=== PATIENT | male | born 1995 | race Caucasian/White ===

== ENCOUNTER 2020-03-11 21:09 | Emergency (ER) | payer SELFPAY ==
[~2020-03-11] VITALS: Ht 182.9 cm; Wt 91.2 kg
[2020-03-11 21:15] VITALS: BP 138/72
--- NOTE | 2020-03-11 21:19 | NUR ---
To ED bed 03
--- NOTE | 2020-03-11 21:38 | NUR ---
24 Y/O MALE C/O CHEST PAIN X8DAYS. PT STATES HE RECNTLY HAD AN UPPER RESPIRATORY INFECTION. PT ALSO STATES HE IS FEELING ANXIOUS AND NOT SURE IF THE CHEST PAIN IS DUE TO ANIXETY OR NOT. PT STATES 8/10 INTERMITTENT CHEST PRESSURE, NON RADIATIONING. TOOK 1 ZOFRAN AND VITAMIN C IN AM. LUNG SOUNDS CLEAR. ACTIVE BOWEL SOUNDS. SKIN WARM AND DRY. PMH: ANXIETY NKA
--- NOTE | 2020-03-11 21:40 | NUR ---
Dr. Navarro at bedside for MSE.
[2020-03-11] MEDS ORDERED: NACL 0.9% 1,000 ML IV ONE (21:50)
--- NOTE | 2020-03-11 21:53 | NUR ---
LAB AT BEDSIDE
--- NOTE | 2020-03-11 21:59 | NUR ---
URINE COLLECTED AND SENT TO LAB
[2020-03-11 22:02] LABS: BASOPHILS # (AUTO) 0.1 K/uL (0.00-0.22); BASOPHILS % (AUTO) 1.7 % (0.0-2.0); EOSINOPHILS # (AUTO) 0.1 K/uL (0-0.4); EOSINOPHILS % (AUTO) 1.9 % (0.0-4.0); HEMATOCRIT 44.5 % (36-52); HEMOGLOBIN 14.7 g/dL (12.0-18.0); LYMPHOCYTES # (AUTO) 1.6 K/uL (2.0-11.5); LYMPHOCYTES % (AUTO) 22.3 % (20.5-51.1); MEAN CORPUSCULAR HEMOGLOBIN 29 pg (27-31); MEAN CORPUSCULAR HGB CONC 33 g/dL (33-37); MEAN CORPUSCULAR VOLUME 87.5 fL (80-94); MONOCYTES # (AUTO) 0.6 K/uL (0.8-1.0); MONOCYTES % (AUTO) 8.2 % (1.7-9.3); NEUTROPHILS # (AUTO) 4.6 K/uL (1.8-7.7); NEUTROPHILS % (AUTO) 65.9 % (42.2-75.2); PLATELET COUNT (AUTO) 263 K/uL (140-450); RED BLOOD CELL COUNT(AUTO) 5.09 MIL/uL (4.20-6.10); RED CELL DISTRIBUTION WIDTH 13.6 % (11.6-13.7)
[2020-03-11 22:17] LABS: ALBUMIN 4.1 g/dL (3.4-5.0); ANION GAP 14.2 (8-16); CARBON DIOXIDE 24.5 mmol/L (21-32); CREATININE 1.4 mg/dL (0.6-1.3); POTASSIUM 3.7 mmol/L (3.5-5.1); TOTAL BILIRUBIN 0.4 mg/dL (0.0-1.0)
[2020-03-11 22:32] LABS: BARBITURATE, URINE NEGATIVE ng/ml (NEG <=200); BENZODIAZEPINE, URINE NEGATIVE ng/mL (NEG <=200); CANNABINOID, URINE NEGATIVE ng/mL (NEG <=50); COCAINE, URINE NEGATIVE ng/mL (NEG <=300); OPIATE, URINE NEGATIVE ng/mL (NEG <=2000); PHENCYCLIDINE SCREEN,URINE NEGATIVE ng/mL (NEG <=25)
--- NOTE | 2020-03-11 23:08 | NUR ---
DR. PEREIRA AT BEDSIDE FOR RE MEDICAL EVALUATION.
--- NOTE | 2020-03-11 23:10 | NUR ---
IV removed, catheter intact and site benign. Applied folded 4x4 gauze and tape to stop bleeding.
[2020-03-11 23:15] VITALS: BP 147/69
--- NOTE | 2020-03-11 23:15 | NUR ---
Patient discharged with v/s stable. Written and verbal after care instructions given and explained. Patient alert, oriented and verbalized understanding of instructions. Ambulatory with steady gait. All questions addressed prior to discharge. ID band removed. Patient advised to follow up with PMD. Rx of ZOFRAN & DIPHENHYDRAMINE given. Patient educated on indication of medication including possible reaction and side effects. Opportunity to ask questions provided and answered.
== END 2020-03-11 23:15 | disposition home or self-care (01) ==
LOC: MED 21:09
DX: R11.2 Nausea with vomiting, unspecified (principal); R19.7 Diarrhea, unspecified; F41.9 Anxiety disorder, unspecified
CPT/HCPCS: 36415; 80053; 80305; 85025; 93005; 96360; 99284; J7030

== ENCOUNTER 2020-03-12 18:23 | Emergency (ER) | payer SELFPAY ==
[~2020-03-12] VITALS: Ht 182.9 cm; Wt 95.7 kg
[2020-03-12 18:53] VITALS: BP 131/79
--- NOTE | 2020-03-12 19:36 | NUR ---
TRENA Hernandez with patient for MSE.
--- NOTE | 2020-03-12 19:57 | NUR ---
Patient discharged with v/s stable. Written and verbal after care instructions given and explained. Patient alert, oriented and verbalized understanding of instructions. Ambulatory with steady gait. All questions addressed prior to discharge. ID band removed. Patient advised to follow up with PMD. Rx of mylanta, famotidine, clomitrazole given. Patient educated on indication of medication including possible reaction and side effects. Opportunity to ask questions provided and answered.
== END 2020-03-12 19:57 | disposition home or self-care (01) ==
LOC: MED 18:23
DX: K21.9 Gastro-esophageal reflux disease without esophagitis (principal); B35.4 Tinea corporis
CPT/HCPCS: 99282

== ENCOUNTER 2020-03-13 20:38 | Emergency (ER) | payer SELFPAY ==
[~2020-03-13] VITALS: Ht 182.9 cm; Wt 95.7 kg
[2020-03-13 20:45] VITALS: BP 123/71
--- NOTE | 2020-03-13 20:49 | NUR ---
to lobby ambulatory
--- NOTE | 2020-03-13 21:50 | NUR ---
SEEN BY ERMD WITH ORDERS AND CARRIED OUT.
[2020-03-13] MEDS ORDERED: ACETAMINOPHEN 325 MG TAB PO ONE (22:10)
--- NOTE | 2020-03-13 22:15 | NUR ---
MEDICATED PER ERMDS ORDER, CARRIED OUT AND PATIENT TOLERATED WELL.
--- NOTE | 2020-03-13 22:35 | NUR ---
RESULT BACK AND NOTED BY ERMD AND FOR D/C
[2020-03-13 22:40] VITALS: BP 118/78
--- NOTE | 2020-03-13 22:40 | NUR ---
Patient discharged with v/s stable. Written and verbal after care instructions given and explained. Patient verbalized understanding. Ambulatory with steady gait. All questions addressed prior to discharge. Advised to follow up with PMD.
== END 2020-03-13 22:40 | disposition home or self-care (01) ==
LOC: MED 20:38
DX: R10.30 Lower abdominal pain, unspecified (principal); R51.9 Headache, unspecified
CPT/HCPCS: 93005; 99283